=== PATIENT | female | born 1955 | race Caucasian/White ===

== ENCOUNTER 2018-06-12 13:40 | Inpatient (IN) | payer OTHER ==
[2018-06-12] MEDS: SOD CHLORIDE 0.9% 1,000 ML IV (14:25)
[2018-06-12 15:18] LABS: ADD MAN DIFF? NO
[2018-06-12 15:21] LABS: WHITE BLOOD COUNT 10.4 10^3/ul (4.8-10.8)
[2018-06-12 15:21] LABS: ABNORMAL IP MESSAGE 1; BASOPHILS % 0.1 % (0.0-2.0); HEMATOCRIT 39.7 % (37.0-47.0); HEMOGLOBIN 12.2 g/dl (12.0-16.0); LYMPHOCYTES # 0.6 10^3/ul (0.8-2.9); LYMPHOCYTES % 5.7 % (15.0-51.0); MEAN CORPUSCULAR HEMOGLOBIN 29.8 pg (29.0-33.0); MEAN CORPUSCULAR HGB CONC 30.7 g/dl (32.0-37.0); MEAN CORPUSCULAR VOLUME 97.1 fl (82.0-101.0); MEAN PLATELET VOLUME 11.5 fl (7.4-10.4); MONOCYTE # 0.6 10^3/ul (0.3-0.9); MONOCYTES % 6.1 % (0.0-11.0); NEUTROPHIL # 9.1 10^3/ul (1.6-7.5); NEUTROPHILS % 87.2 % (39.0-77.0); PLATELET COUNT 211 10^3/UL (140-415); RED BLOOD COUNT 4.09 10^6/ul (4.20-5.40); RED CELL DISTRIBUTION WIDTH 14.3 % (11.5-14.5)
[2018-06-12 15:26] LABS: POSITIVE DIFF @See below
[2018-06-12 15:39] LABS: INR 1.06; PROTIME 13.9 Sec (11.9-14.9); PT RATIO 1.1
[2018-06-12 15:47] LABS: MAGNESIUM 2.8 mg/dl (1.7-2.5)
[2018-06-12 15:47] LABS: PHOSPHORUS 7.3 mg/dl (2.5-4.9)
[2018-06-12 15:48] LABS: ALBUMIN/GLOBULIN RATIO 1.73; ALKALINE PHOSPHATASE 110 IU/L (42-121); ANION GAP 40 (8-16); ASPARTATE AMINO TRANSFERASE 12 IU/L (15-46); BILIRUBIN,INDIRECT 0.3 mg/dl (0-1.1); BILIRUBIN,TOTAL 0.3 mg/dl (0.2-1.3); BLOOD UREA NITROGEN 40 mg/dl (7-20); CALCIUM 9.1 mg/dl (8.4-10.2); CHLORIDE 99 mmol/L (97-110); CREATININE 1.91 mg/dl (0.44-1.00); POTASSIUM 4.9 mmol/L (3.5-5.1); SODIUM 142 mmol/L (135-144); TOTAL PROTEIN 6.3 g/dl (6.1-8.1)
[2018-06-12 15:52] LABS: ADD UMIC YES; UR ASCORBIC ACID NEGATIVE (NEGATIVE); UR BACTERIA FEW /HPF (NONE SEEN); UR BILIRUBIN (Dip) NEGATIVE (NEGATIVE); UR BLOOD (Dip) 1+ mg/dL (NEGATIVE); UR CLARITY SLIGHTLY CLOUDY (CLEAR); UR COLOR YELLOW (YELLOW); UR GLUCOSE (Dip) 3+ mg/dL (NEGATIVE); UR KETONES (Dip) 2+ mg/dL (NEGATIVE); UR LEUKOCYTE ESTERASE (Dip) TRACE Leu/ul (NEGATIVE); UR MUCUS FEW /HPF (NONE SEEN); UR NITRITE (Dip) NEGATIVE (NEGATIVE); UR RBC 3 /HPF (0-5); UR SPECIFIC GRAVITY (Dip) 1.022 (1.003-1.030); UR SQUAMOUS EPITHELIAL CELL FEW /HPF (FEW); UR TOTAL PROTEIN (Dip) 2+ mg/dl (NEGATIVE); UR UROBILINOGEN (Dip) NEGATIVE (NEGATIVE); UR WBC 44 /HPF (0-5)
[2018-06-12 15:58] LABS: AMPHETAMINE/METHAMPHETAMINE Negative (NEGATIVE); BARBITURATES Negative (NEGATIVE); BENZODIAZEPINES Negative (NEGATIVE); CANNABINOIDS Negative (NEGATIVE); COCAINE Negative (NEGATIVE); OPIATES Negative (NEGATIVE); TROPONIN-I < 0.012 ng/ml (0.000-0.120)
[2018-06-12 16:02] LABS: ACETAMINOPHEN < 10.0 ug/ml (10.0-30.0); CARBON DIOXIDE 8 mmol/L (21-31); ETHANOL < 10.0 mg/dl; GLUCOSE 847 mg/dl (70-220); SALICYLATE < 1.0 mg/dl (5.0-30.0)
[2018-06-12 16:08] LABS: LACTIC ACID 2.8 mmol/L (0.5-2.0)
[2018-06-12] MEDS ORDERED: SODIUM CHLORIDE 23.4% 77 MEQ, POTASSIUM CHLORIDE 30 MEQ in DEXTROSE 10% 1,000 ML IV (16:09)
[2018-06-12] MEDS ORDERED: POTASSIUM CHLORIDE 40 MEQ in SOD CHLORIDE 0.9% 1,000 ML IV (16:09)
[2018-06-12] MEDS ORDERED: SOD CHLORIDE 0.9% 1,000 ML IV (16:09)
[2018-06-12] MEDS ORDERED: SODIUM CHLORIDE 23.4% 77 MEQ, POTASSIUM CHLORIDE 40 MEQ in DEXTROSE 10% 1,000 ML IV (16:09)
[2018-06-12 16:18] LABS: ALANINE AMINOTRANSFERASE 13 IU/L (13-69)
[2018-06-12] MEDS ORDERED: DEXTROSE 50% 50 ML SYRINGE IV ×2 (16:30)
[2018-06-12] MEDS: LACTATED RINGER'S 1,000 ML IV (16:33)
[2018-06-12] MEDS: INSULIN REGULAR, HUMAN 100 UNIT in SOD CHLORIDE 0.9% 100 ML IV (17:03)
[2018-06-12] MEDS: POTASSIUM CHLORIDE 30 MEQ in SOD CHLORIDE 0.9% 1,000 ML IV ×2 (17:07→22:13)
[2018-06-12 17:45] LABS: LACTIC ACID 1.9 mmol/L (0.5-2.0)
[2018-06-12] MEDS ORDERED: DOCUSATE SODIUM 100 MG CAP PO (18:00)
[2018-06-12] MEDS ORDERED: ACETAMINOPHEN 325 MG TAB PO (18:00)
[2018-06-12] MEDS ORDERED: morphine 2 MG INJ IV (18:00)
[2018-06-12] MEDS ORDERED: NACL 0.9% 3 ML SYG IV (18:00)
[2018-06-12] MEDS ORDERED: HYDROCODONE/APAP (5/325) TAB PO (18:00)
[2018-06-12] MEDS ORDERED: ZOLPIDEM 5 MG TAB PO (18:00)
[2018-06-12 18:58] LABS: MODE ROOM AIR; MetHgb Venous 0.3 %; Sample Type Blood venous; Site VENOUS LINE; Venous COHb 0.4 %; Venous Oxygen Sat 57.4 mmHG (55.0-75.0); Venous Total Hemglobin 13.7 g/dl
[2018-06-12 19:11] LABS: ANION GAP 32 (8-16); BLOOD UREA NITROGEN 38 mg/dl (7-20); CALCIUM 9.3 mg/dl (8.4-10.2); CARBON DIOXIDE 13 mmol/L (21-31); CHLORIDE 104 mmol/L (97-110); CREATININE 1.63 mg/dl (0.44-1.00); MAGNESIUM 2.6 mg/dl (1.7-2.5); PHOSPHORUS 3.7 mg/dl (2.5-4.9); POTASSIUM 4.4 mmol/L (3.5-5.1); SODIUM 145 mmol/L (135-144)
[2018-06-12 19:23] LABS: GLUCOSE 563 mg/dl (70-220)
[2018-06-12] MEDS: CEFTRIAXONE 1 GM/50 ML (PMX) 50 ML IVPB (20:17)
[2018-06-12] MEDS: DOCUSATE SODIUM 100 MG CAP PO (21:06)
[2018-06-12] MEDS: SODIUM CHLORIDE 23.4% 77 MEQ in DEXTROSE 10% 1,000 ML IV (21:17)
[2018-06-12 23:26] LABS: ANION GAP 15 (8-16); BLOOD UREA NITROGEN 35 mg/dl (7-20); CALCIUM 8.6 mg/dl (8.4-10.2); CARBON DIOXIDE 24 mmol/L (21-31); CHLORIDE 112 mmol/L (97-110); CREATININE 1.01 mg/dl (0.44-1.00); GLUCOSE 256 mg/dl (70-220); MAGNESIUM 2.3 mg/dl (1.7-2.5); PHOSPHORUS 1.2 mg/dl (2.5-4.9); POTASSIUM 3.8 mmol/L (3.5-5.1); SODIUM 147 mmol/L (135-144)
[2018-06-13 00:22] LABS: MODE ROOM AIR; MetHgb Venous 0.2 %; Sample Type Blood venous; Site VENOUS LINE; Venous COHb 0.5 %; Venous Fraction OxyHgb 78.3 %; Venous Oxygen Sat 78.9 mmHG (55.0-75.0); Venous Total Hemglobin 12.4 g/dl
[2018-06-13 00:41] LABS: ANION GAP 13 (8-16); BLOOD UREA NITROGEN 34 mg/dl (7-20); CALCIUM 8.7 mg/dl (8.4-10.2); CARBON DIOXIDE 27 mmol/L (21-31); CHLORIDE 111 mmol/L (97-110); CREATININE 0.96 mg/dl (0.44-1.00); GLUCOSE 265 mg/dl (70-220); MAGNESIUM 2.3 mg/dl (1.7-2.5); PHOSPHORUS 1.3 mg/dl (2.5-4.9); POTASSIUM 3.8 mmol/L (3.5-5.1); SODIUM 147 mmol/L (135-144)
[2018-06-13] MEDS: POTASSIUM PHOSPHATE 30 MM in SOD CHLORIDE 0.9% 250 ML IVPB (01:15)
[2018-06-13] MEDS: INSULIN GLARGINE [LANTus] (100 UNITS/ML) SYG SC ×2 (03:26→20:15)
[2018-06-13] MEDS: SODIUM CHLORIDE 23.4% 77 MEQ in DEXTROSE 10% 1,000 ML IV (04:28)
[2018-06-13] MEDS: PANTOPRAZOLE (EC) 40 MG TAB PO (06:25)
[2018-06-13 06:27] LABS: ANION GAP 7 (8-16); BLOOD UREA NITROGEN 26 mg/dl (7-20); CARBON DIOXIDE 27 mmol/L (21-31); CHLORIDE 119 mmol/L (97-110); CREATININE 0.79 mg/dl (0.44-1.00); GLUCOSE 210 mg/dl (70-220); MAGNESIUM 2.1 mg/dl (1.7-2.5); PHOSPHORUS 3.8 mg/dl (2.5-4.9); POTASSIUM 3.9 mmol/L (3.5-5.1); SODIUM 149 mmol/L (135-144)
[2018-06-13] MEDS: INSULIN ASPART [NOVOLOG] 3 ML PEN SC ×6 (09:30→20:18)
[2018-06-13] MEDS ORDERED: GLUCOSE GEL 15 GRAM TUBE BUCCAL (10:00)
[2018-06-13] MEDS ORDERED: GLUCAGON 1 MG INJ IM (10:00)
[2018-06-13] MEDS: DOCUSATE SODIUM 100 MG CAP PO ×2 (10:00→20:20)
[2018-06-13] MEDS ORDERED: GLUCOSE GEL 15 GRAM TUBE PO ×2 (10:00)
[2018-06-13] MEDS ORDERED: DEXTROSE 50% 50 ML SYRINGE IV ×2 (10:00)
[2018-06-13 10:02] LABS: ANION GAP 9 (8-16); BLOOD UREA NITROGEN 24 mg/dl (7-20); CALCIUM 8.1 mg/dl (8.4-10.2); CARBON DIOXIDE 25 mmol/L (21-31); CHLORIDE 116 mmol/L (97-110); CREATININE 0.73 mg/dl (0.44-1.00); GLUCOSE 146 mg/dl (70-220); MAGNESIUM 2.1 mg/dl (1.7-2.5); SODIUM 146 mmol/L (135-144)
[2018-06-13] MEDS: MAGNESIUM HYDROXIDE 30ML CUP PO (10:03)
[2018-06-13] MEDS: ONDANSETRON 4 MG INJ IV (10:08)
[2018-06-13 12:54] LABS: ANION GAP 9 (8-16); BLOOD UREA NITROGEN 22 mg/dl (7-20); CALCIUM 8.3 mg/dl (8.4-10.2); CARBON DIOXIDE 28 mmol/L (21-31); CHLORIDE 113 mmol/L (97-110); CREATININE 0.71 mg/dl (0.44-1.00); GLUCOSE 192 mg/dl (70-220); MAGNESIUM 2.2 mg/dl (1.7-2.5); PHOSPHORUS 2.9 mg/dl (2.5-4.9); POTASSIUM 3.9 mmol/L (3.5-5.1); SODIUM 146 mmol/L (135-144)
[2018-06-13] MEDS: CEFTRIAXONE 1 GM/50 ML (PMX) 50 ML IVPB (20:14)
[2018-06-14] MEDS: PANTOPRAZOLE (EC) 40 MG TAB PO (06:09)
[2018-06-14 06:34] LABS: BLOOD UREA NITROGEN 15 mg/dl (7-20); CALCIUM 8.8 mg/dl (8.4-10.2); CARBON DIOXIDE 31 mmol/L (21-31); CHLORIDE 112 mmol/L (97-110); CREATININE 0.62 mg/dl (0.44-1.00); GLUCOSE 154 mg/dl (70-220); MAGNESIUM 2.3 mg/dl (1.7-2.5); PHOSPHORUS 1.9 mg/dl (2.5-4.9); SODIUM 145 mmol/L (135-144)
[2018-06-14 06:35] LABS: ANION GAP 6 (8-16); POTASSIUM 3.8 mmol/L (3.5-5.1)
[2018-06-14] MEDS: INSULIN ASPART [NOVOLOG] 3 ML PEN SC ×7 (08:44→21:05)
[2018-06-14] MEDS: DOCUSATE SODIUM 100 MG CAP PO ×2 (09:47→20:46)
[2018-06-14] MEDS: POLYETHYLENE GLYCOL 17 GM PACKET PO ×2 (09:47→16:32)
[2018-06-14] MEDS: SENNA TAB PO ×2 (09:47→20:47)
[2018-06-14] MEDS: CEFTRIAXONE 1 GM/50 ML (PMX) 50 ML IVPB (19:00)
[2018-06-14] MEDS: INSULIN GLARGINE [LANTus] (100 UNITS/ML) SYG SC (21:04)
[2018-06-15] MEDS: PANTOPRAZOLE (EC) 40 MG TAB PO (04:52)
[2018-06-15 06:19] LABS: ANION GAP 6 (8-16); BLOOD UREA NITROGEN 14 mg/dl (7-20); CALCIUM 8.8 mg/dl (8.4-10.2); CARBON DIOXIDE 33 mmol/L (21-31); CHLORIDE 110 mmol/L (97-110); CREATININE 0.58 mg/dl (0.44-1.00); GLUCOSE 169 mg/dl (70-220); MAGNESIUM 2.3 mg/dl (1.7-2.5); PHOSPHORUS 2.3 mg/dl (2.5-4.9); POTASSIUM 3.7 mmol/L (3.5-5.1); SODIUM 145 mmol/L (135-144)
[2018-06-15] MEDS: NA PHOSPHATE/BIPHOS 133 ML ENEMA PR (07:17)
[2018-06-15] MEDS: INSULIN ASPART [NOVOLOG] 3 ML PEN SC ×7 (08:21→20:26)
[2018-06-15] MEDS: DOCUSATE SODIUM 100 MG CAP PO ×2 (08:34→20:23)
[2018-06-15] MEDS: SENNA TAB PO ×2 (08:34→20:23)
[2018-06-15] MEDS: CEFTRIAXONE 1 GM/50 ML (PMX) 50 ML IVPB (17:59)
[2018-06-15] MEDS: INSULIN GLARGINE [LANTus] (100 UNITS/ML) SYG SC (20:25)
[2018-06-15] MEDS: NITROFURANTOIN (SR) 100 MG CAP PO (21:27)
[2018-06-16] MEDS: PANTOPRAZOLE (EC) 40 MG TAB PO (05:20)
[2018-06-16] MEDS: INSULIN ASPART [NOVOLOG] 3 ML PEN SC ×4 (08:38→12:59)
[2018-06-16] MEDS: SENNA TAB PO (09:00)
[2018-06-16] MEDS: DOCUSATE SODIUM 100 MG CAP PO (09:00)
[2018-06-16 09:24] LABS: ANION GAP 4 (5-13); BLOOD UREA NITROGEN 17 mg/dl (7-20); CALCIUM 9.3 mg/dl (8.4-10.2); CARBON DIOXIDE 35 mmol/L (21-31); CHLORIDE 102 mmol/L (97-110); GLUCOSE 301 mg/dl (70-220); MAGNESIUM 2.2 mg/dl (1.7-2.5); PHOSPHORUS 3.5 mg/dl (2.5-4.9); POTASSIUM 3.7 mmol/L (3.5-5.1); SODIUM 141 mmol/L (135-144)
[2018-06-16] MEDS: NITROFURANTOIN (SR) 100 MG CAP PO (10:12)
== END 2018-06-16 16:00 | disposition home or self-care (01) | DRG 637 ==
LOC: E/R 13:40 → 2NE 06-14 18:45 → ICU 17:01
PROVIDERS: Internal Medicine
DX: E11.10 Type 2 diabetes mellitus with ketoacidosis without coma (principal); G93.41 Metabolic encephalopathy; N39.0 Urinary tract infection, site not specified; N17.9 Acute kidney failure, unspecified; Z91.14 Patient's other noncompliance with medication regimen; B96.20 Unspecified Escherichia coli [E. coli] as the cause of diseases classified elsewhere; Z79.4 Long term (current) use of insulin
CPT/HCPCS: 36415; 70450; 71045; 74018; 80048; 80053; 80307; 81001; 82803; 82962; 83036; 83605; 83735; 84100; 84484; 85025; 85610; 87040; 87081; 87086; 92526; 92610; 93005; 97161; 99291-25